=== PATIENT | female | born 1950 | race Caucasian/White ===

== ENCOUNTER 2024-03-21 04:54 | Emergency (ER) | payer OTHER ==
[~2024-03-21] VITALS: Ht 170.2 cm; Wt 77.0 kg
[2024-03-21 04:56] VITALS: O2SAT 98
[2024-03-21] MEDS: SODIUM CHLORIDE 0.9% 1,000 ML IV ONE (06:05)
[2024-03-21 07:47] LABS: POTASSIUM 4.2 mEq/L (3.5-5.1)
[2024-03-21 07:50] VITALS: BP 150/59; PULSE 80; RESP 16; TEMP 37.00296; O2SAT 100
[2024-03-21 08:02] LABS: BASOPHILS % 0.4 % (0.0-2.0); EOSINOPHILS % 0.3 % (0.0-5.0); HEMATOCRIT. 40.7 % (36.0-48.0); HEMOGLOBIN. 13.2 g/dL (12.0-16.0); LYMPHOCYTES % 10.1 % (20.0-50.0); MEAN CORPUSCULAR HEMOGLOBIN 31.7 pg (28.0-32.0); MEAN CORPUSCULAR HGB CONC 32.4 g/dL (31.0-37.0); MEAN CORPUSCULAR VOLUME 97.7 fL (81.0-99.0); MEAN PLATELET VOLUME 7.7 fl (7.4-10.4); MONOCYTES % 5.8 % (2.0-8.0); NEUTROPHILS % 83.4 % (40.0-76.0); PLATELET 240 x1000/uL (130-400); RED BLOOD CELL COUNT 4.16 mill/uL (4.2-5.4); RED CELL DISTRIBUTION WIDTH 12.9 % (11.6-14.6); WHITE BLOOD COUNT 15.3 x1000/uL (4.5-11.0)
== END 2024-03-21 08:53 | disposition home or self-care (01) ==
LOC: ER 04:54
DX: R04.0 Epistaxis (principal); Z90.5 Acquired absence of kidney
CPT/HCPCS: 99285; 80048; 85025; 36415; 30901; J7030